=== PATIENT | female | born 1995 | race Caucasian/White ===

== ENCOUNTER 2017-10-12 14:56 | Emergency (ER) | payer BC ==
[~2017-10-12] VITALS: Ht 165.1 cm; Wt 97.5 kg
[2017-10-12] MEDS ORDERED: DIPHENHYDRAMINE HCL INJ 50 MG/ML VIAL IM ONE (15:15)
[2017-10-12] MEDS ORDERED: DEXAMETHASONE SOD PHOS 10 MG/1 ML VIAL INJ ONE (15:15)
[2017-10-12 15:45] VITALS: BP 147/74
== END 2017-10-12 15:49 | disposition home or self-care (01) ==
LOC: FSED 14:56
DX: D84.1 Defects in the complement system (principal); R60.0 Localized edema
CPT/HCPCS: 99283; J1100; J1200

== ENCOUNTER 2022-03-31 10:31 | Emergency (ER) | payer SELFPAY ==
[~2022-03-31] VITALS: Ht 165.1 cm; Wt 97.5 kg
[2022-03-31] MEDS ORDERED: SODIUM CHLORIDE 0.9% 1000ML 1,000 ML IV STA (10:59)
[2022-03-31] MEDS ORDERED: ONDANSETRON HCL INJ 2MG/ML 2ML 2 MG/ML VIAL IV ONE (11:00)
[2022-03-31] MEDS ORDERED: FAMOTIDINE 20 MG/2 ML VIAL IV ONE (11:00)
[2022-03-31] MEDS ORDERED: SODIUM CHLORIDE 0.9% 1000ML 1,000 ML ONE (11:22)
[2022-03-31] MEDS ORDERED: IOPAMIDOL 370 MG/ML 100 ML INFUS..BTL INJ ONE (11:24)
[2022-03-31] MEDS ORDERED: FAMOTIDINE20 MG PO (12:20)
[2022-03-31] MEDS ORDERED: ONDANSETRON ODT4 MG PO (12:20)
== END 2022-03-31 12:26 | disposition home or self-care (01) ==
LOC: FSED 11:04
DX: R11.2 Nausea with vomiting, unspecified (principal); K52.9 Noninfective gastroenteritis and colitis, unspecified; R10.31 Right lower quadrant pain; R00.0 Tachycardia, unspecified
CPT/HCPCS: 74177; 80053; 81003; 81025; 96374; 96376; 99284; J2405; J7030; Q9967